=== PATIENT | female | born 1940 | race Caucasian/White ===

== ENCOUNTER 2016-08-29 11:29 | Outpatient (CLI) | payer OTHER ==
--- NOTE | 2016-08-29 12:12 | DIAGNOSTIC IMAGING REPORT ---
PROCEDURE: XR CHEST 2 VIEW INDICATION: ABMORNAL EKG,COUGH,CHEST PX,HYPERTENSION TECHNIQUE: PA and lateral views. COMPARISON: Chest 01/31/06 FINDINGS: Lungs are clear. Heart and mediastinum are normal. Thorax is normal. IMPRESSION: 1. Negative chest. 2. Results were called to Dr. Morales
== END 2016-08-29 23:00 ==
LOC: LAB SRH 11:29
DX: R94.31 Abnormal electrocardiogram [ECG] [EKG] (principal); R05 Cough; R07.9 Chest pain, unspecified; I10 Essential (primary) hypertension
CPT/HCPCS: 90074; 90100; 90616

== ENCOUNTER 2016-11-25 17:27 | Emergency (ER) | payer OTHER ==
--- NOTE | 2016-11-25 19:41 | DIAGNOSTIC IMAGING REPORT ---
PROCEDURE: XR CHEST 1 VIEW INDICATION: CHEST PAIN TECHNIQUE: Portable AP view (1920 hours). COMPARISON: Compared to chest x-ray on 08/29/2016. FINDINGS: Allowing for overlying wires and electrodes, lungs are clear. Heart and mediastinum are normal. Mild levoscoliosis and degenerative changes of the thoracic spine. IMPRESSION: 1. Negative chest.
--- NOTE | 2016-11-25 21:18 | ED NURSING NOTES ---
Clinical Report - Nurses [facility] [address] [place] [address] 11/25/2016 17:28 Patient: NISREEN STEINBERG TRIAGE Triage time 17:29 Nov 25 2016. Chief Complaint: (pt reports back pain x 3 days, ems found pt with HR 80-160's, denies cp). Alert. SEPSIS SCREEN: Sepsis Screen: negative. Negative (no infection suspected/documented). --17:35 Jillian Poon R.N. 17:29 11/25/16. BP: 179/124. HR: 154. RR: 15. O2 saturation: 99%. Temp: 99.4 F. Pain level now 10/10. --17:35 Jillian Poon R.N. Weight: 45.3 kg estimated. Height/Length: 60 inches Estimated. BMI: 19.5. --11:46 Mee Turcios R.N. Medications Unable to Obtain (Patient refused to answer questions in regards to meds. ). --11:47 Mee Turcios R.N. Allergies None. --17:31 Jillian Poon R.N. History Arrived by EMS. Historian: patient. Onset. (3 days ago). ( pt poor hx and agitated and argumentative with care ,). ( pts only c/o is back pain). 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 See EMS report. PAST MEDICAL HX: Immunizations: up-to-date. The patient is post-menopausal. SOCIAL HX: Light tobacco smoker (cigarette)- less than 1/2 a pack per day (pt states "I smoke one cigarette a day when I am stressed"). No alcohol use or drug use. No infectious disease exposure. ABUSE ASSESSMENT: No report of abuse. SELF HARM ASSESSMENT: A self harm assessment was performed. The patient answered "no" to the question "Have you recently felt down, depressed, or hopeless?", "Have you noticed less interest or pleasure in doing things?", "Do you have thoughts of harming or killing yourself?", "Are you here because you tried to hurt yourself?", "Have you ever tried to hurt yourself before today?", "Have you recently had thoughts about harming or killing others?" and "Do you have any dangerous items in your possession?". FALL RISK ASSESSMENT: Fall risk assessment completed. No fall risk identified. NUTRITIONAL RISK ASSESSMENT: The nutritional risk assessment revealed no deficiencies. FUNCTIONAL ASSESSMENT: Functional assessment: no impairments noted. LEARNING NEEDS ASSESSMENT: The learning needs assessment revealed no barriers. SKIN INTEGRITY ASSESSMENT: Skin integrity risk assessment completed. No skin integrity risk identified. --17:35 Jillian Poon R.N. Interventions ID band on patient. To treatment room. Transported via stretcher by EMS. --17:35 Jillian Poon R.N. PHYSICAL ASSESSMENT GENERAL / NEURO / PSYCH: (pt has very aggressive verbal tone with staff,). She appears agitated and is hostile. --17:37 Jillian Poon R.N. NURSING PROGRESS NOTES EKG time: (6838). EKG was performed by a nurse and shown to the ED physician. --17:43 Stephon Mares R.N. 17:44 11/25/2016 Site #1 started via IV in the left forearm with an 20g angiocath, with aseptic technique and good blood return; one attempt. Blood drawn: rainbow set. Labeled in the presence of the patient and sent to the lab. Saline lock flushed with 10 mL saline. --17:54 Mee Turcios R.N. Oxygen administered. monitoring engineer, pulse oximeter and NIBP monitor placed on patient; hospital monitor- Lead II; monitor alarms on. Patient gowned. Head of bed elevated. Two patient identifiers checked. Call light placed in reach. Side rails up x 2. Bed placed in lowest position. Brakes of bed on. Patient ready for evaluation. --18:10 Mee Turcios R.N. 18:10 11/25/16. BP: 167/85. HR: 140. RR: 20. O2 saturation: 94% on room air. Pain level now: 05/29. --18:13 Mee Turcios R.N. 18:11/25/2016 Dilaudid (HYDROmorphone HCl PF) IVP 0.5 mg given over 1 minute(s) via site #1. Allergies verified, confirmed 5 rights and sedative warning given to the patient. IV patency established. IV site checked: no pain, redness, or swelling. IV flushed thoroughly pre- and post-medication administration. IVP given by RN. --18:13 Mee Turcios R.N. 18:09 11/25/2016 Ativan (LORazepam) IVP 1 mg given over 1 minute(s) via site #1. Allergies verified, confirmed 5 rights and sedative warning given to the patient. IV patency established. IV site checked: no pain, redness, or swelling. IV flushed thoroughly pre- and post-medication administration. IVP given by RN. --18:14 Mee Turcios R.N. 18:14 11/25/2016 Toradol IVP 30 mg given over 1 minute(s) via site #1. Allergies verified and confirmed 5 rights. IV patency established. IV site checked: no pain, redness, or swelling. IV flushed thoroughly pre- and post-medication administration. IVP given by RN. --18:14 Mee Turcios R.N. 18:24 11/25/2016 Cardizem IVP 15 mg given over 5 minute(s) via site #1. Allergies verified and confirmed 5 rights. IV patency established. IV site checked: no pain, redness, or swelling. IV flushed thoroughly pre- and post-medication administration. IVP given by RN. --18:29 Mee Turcios R.N. 18:29 11/25/16. BP: 148/73. HR: 114. RR: 22. O2 saturation: 96% on nasal cannula at 2 liters/minute. Pain level now: 03/29. 18:10 11/25/16. BP: 167/85. HR: 140. RR: 20. O2 saturation: 94% on room air. Pain level now: 05/29. --18:30 Mee Turcios R.N. 19:06 11/25/2016 Started 10 mg of Cardizem Drip IV in bag #1 100 mL; at 10 mg/hr over 5 hour(s) via site #1 via IV pump. Allergies verified and confirmed 5 rights. IV patency established. IV site checked: no pain, redness, or swelling. IV flushed thoroughly pre- and post-medication administration. --19:16 Mee Turcios R.N. 19:24 11/25/16. BP: 132/74. HR: 117. RR: 20. O2 saturation: 99% on nasal cannula at 2 liters/minute. Pain level now: 09/29. --19:25 Mee Turcios R.N. 20:24 11/25/2016 Dilaudid (HYDROmorphone HCl PF) IVP 0.5 mg given over 1 minute(s) via site #1. Allergies verified, confirmed 5 rights and sedative warning given to the patient. IV patency established. IV site checked: no pain, redness, or swelling. IV flushed thoroughly pre- and post-medication administration. IVP given by RN. --20:29 Mee Turcios R.N. 20:26 11/25/2016 Ativan (LORazepam) IVP 1 mg given over 1 minute(s) via site #1. Allergies verified, confirmed 5 rights and sedative warning given to the patient. IV patency established. IV site checked: no pain, redness, or swelling. IV flushed thoroughly pre- and post-medication administration. IVP given by RN. --20:30 Mee Turcios R.N. 21:42 11/25/16. BP: 145/83. HR: 114. RR: 20. O2 saturation: 96% on nasal cannula at 2 liters/minute. --21:44 Joellen Sorto ( Patient assisted up to bedside commode). --21:44 Joellen Sorto 22:39 11/25/2016 Site #[address] upon transfer; patent, no pain and no signs of infection or infiltration. Good blood return present (Diltiazem 125mg/125ml bag . Normal saline 250ml bag 240ml remaining to infused.). --11:53 Mee Turcios R.N. 22:40 11/25/2016 IV Saline Lock Drip IV Continued: upon transfer at the rate of 15 mcg/hr. 95 mL remaining bag #1. IV patency established. IV site checked: no pain, redness, or swelling. IV flushed thoroughly. (Diltiazem). --11:51 Mee Turcios R.N. DISPOSITION / DISCHARGE Patient's personal items include, Robe and gown; items were transported with the patient. Collection of belongings was witnessed by 1 nurse. --21:45 Mee Turcios R.N. 22:18 11/25/16. BP: 155/92. HR: 115. RR: 18. O2 saturation: 96% on nasal cannula at 2 liters/minute. Temp: deferred. 21:42 11/25/16. BP: 145/83. HR: 114. RR: 20. O2 saturation: 96% on nasal cannula at 2 liters/minute. 20:30 11/25/16. BP: 150/78. HR: 110. RR: 18. O2 saturation: 98% on room air. Pain level now: 01/27. 19:24 11/25/16. BP: 132/74. HR: 117. RR: 20. O2 saturation: 99% on nasal cannula at 2 liters/minute. Pain level now: 09/29. 18:29 11/25/16. BP: 148/73. HR: 114. RR: 22. O2 saturation: 96% on nasal cannula at 2 liters/minute. Pain level now: 03/29. 18:11/25/16. BP: 167/85. HR: 140. RR: 20. O2 saturation: 94% on room air. Pain level now: 05/29. 17:11/25/16. BP: 179/124. HR: 154. RR: 15. O2 saturation: 99%. Temp: 99.4 F. Pain level now 05/29. --22:23 Mee Turcios R.N. Transported via stretcher by EMS with IV. Report was given to a nurse and an EMT/P in person. Report included patient's care, treatment, medications, reviewed medication reconcilliation, and condition (including any recent changes or anticipated changes). Report was acknowledged and care was transferred. --22:24 Mee Turcios R.N. Report was given to a nurse via a phone call. Report included patient's care, treatment, medications, reviewed medication reconcilliation, and condition (including any recent changes or anticipated changes). Report was acknowledged and care was transferred. (MARSHAL Loya). --22:31 Mee Turcios R.N. Departure time: 22:45 Nov 25 2016. --23:21 Joellen Sorto Departure time: 2244. --11:56 Mee Turcios R.N. Locked/Released at 11/26/2016 11:59 by Mee Turcios R.N.
--- NOTE | 2016-11-25 21:18 | ED CLINICAL REPORT ---
Clinical Report - Physicians/Mid Levels [facility] [address] [place] [address] 11/25/2016 17:28 Patient: NISREEN STEINBERG Time Seen: 17:40 Nov 25 2016. Arrived- By ambulance. Historian- patient and EMS personnel. CPT: ER phys charges level 5 plus (#[id number]). EKG interpretation (#[id number]). HISTORY OF PRESENT ILLNESS Chief Complaint: Main complaint is of back pain but medics found a HR of 160. This started about 3 days of back pain; Tried a soma as it usually works but has not gotten relief yet. and is still present. At its maximum, severity described as moderate. When seen in the E.D., severity described as moderate. Modifying factors- worsened by movement and walking. (Pt does not like Doctors so did not follow up with cardiology after Dr Morales diagnosed an ND in the office this past August. 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 Pt does not know of any history of a-fib. She has had an irregular heartbeat on and off for the past 6 months but did not report it.). Similar symptoms previously: Chronically, milder (6 times). Diagnosis: unknown. ( Pt experienced fluttering in the chest but did not have it checked out.). Recent medical care: Not recently seen/assessed. REVIEW OF SYSTEMS No fever, sore throat or throat, sinus drainage or nasal congestion. No cough, difficulty breathing, chest pain, abdominal pain or nausea. No vomiting, diarrhea, black stools, bloody stools or difficulty with urination. No headache, blackouts, skin rash, weakness or diabetic symptoms. No easy bruising. The patient has had moderate lower back pain (10/10). No difficulty with ambulation. All systems otherwise negative, except as recorded above. PAST HISTORY ND August 2016. Cardiac cath 2011 Dr Huerta Hypertension. Diabetes Mellitus.. Additional Surgeries: Back Surgery. Cholecystectomy.. SOCIAL HISTORY Light tobacco smoker (cigarette)- less than 1/2 a pack per day. No alcohol use or drug use. ADDITIONAL NOTES The nursing notes have been reviewed. PHYSICAL EXAM Vital Signs: 11/25/2016 17:29 BP: 179/124. HR: 154. RR: 15. O2 saturation: 99%. Temp: 99.4 F. Appearance: Alert. Anxious. Appears to be in pain. Patient in moderate distress. Eyes: Eyes normal inspection. ENT: Pharynx normal. Neck: Normal inspection. Neck supple. CVS: Tachycardia. Heart sounds normal. Pulses normal. Respiratory: No respiratory distress. Breath sounds normal. Chest nontender. Abdomen: No visible injury. Soft and nontender. Bowel sounds normal. Back: (Tender to palpation over the paralumbar soft tissue.). Skin: Skin warm. Normal skin color. No rash. Extremities: Extremities exhibit normal ROM. No lower extremity edema. Neuro: Oriented X 3. No motor deficit. No sensory deficit. Reflexes normal. LABS, X-RAYS, AND EKG EKG: Rate: 158. Atrial fibrillation. Non-specific ST segment / T wave abnormalities. ST depression. Prior EKG unavailable. The study has been interpreted contemporaneously. The study has been independently viewed by me. The EKG appears to be a good tracing. Chest X-ray: Normal Chest X-Ray. Laboratory Tests: CBC w Diff: (TEETEE: 11/25/2016 17:45) ( MsgRcvd 11/25/2016 18:03) Final results Test Result Flag Units (Reference) WHITE BLOOD COUNT 16.0 H K/uL (4.5-11.5) RED BLOOD COUNT 5.27 H M/uL (4.00-5.20) HEMOGLOBIN 15.4 gm/dL (12.0-16.0) HEMATOCRIT 45.5 % (36.0-46.0) MEAN CELL VOLUME 86 fL (80-100) MEAN CORPUSCULAR HGB 29 pg (26-34) MEAN CORPUSCULAR HGB CONC 34 g/dL (31-37) RED CELL DISTRIBUTION WIDTH 13.6 % (11.6-14.8) PLATELET COUNT 256 K/uL (150-400) NEUTROPHIL % 71.5 % (50-75) LYMPH % 19.3 L % (25-40) MONO % 8.5 % (3-14) EOSINOPHIL % 0.1 % (0-4) BASOPHIL % 0.6 % (0-2) BNP: (TEETEE: 11/25/2016 17:45) ( PrgRcvd 11/25/2016 18:33) Final results Test Result Flag Units (Reference) B-TYPE NATRIURETIC PEPTIDE 321 H pg/ml (5-100) TSH: (TEETEE: 11/25/2016 17:45) ( MsgRcvd 11/25/2016 18:29) Final results Test Result Flag Units (Reference) THYROID STIMULATING HORMONE 1.272 uIU/mL (0.30-3.74) CHEM 13 PANEL: (TEETEE: 11/25/2016 17:45) ( [facility] Final results Test Result Flag Units (Reference) GLUCOSE 131 H mg/dL (70-110) BUN 15 mg/dL (7-18) CREATININE 1.0 mg/dL (0.6-1.3) Estimated GFR 57.76 mL/min Estimated GFR- >60 mL/min Note: Persistent reduction over 3 months in eGFR<60 mL/min/1.73 m2 defines CKD. Patients with eGFR values>=60 mL/min/1.73 m2 may also have CKD if evidence ofpersistent proteinuria. Additional information may be foundat www.kidney.org. SODIUM 137 mmol/L (136-145) POTASSIUM 3.5 mmol/L (3.5-5.1) CHLORIDE 103 mmol/L (98-107) CARBON DIOXIDE 21 mmol/L (21-32) CALCIUM 9.9 mg/dL (8.5-10.1) TOTAL PROTEIN 7.8 g/dL (6.4-8.2) ALBUMIN 3.4 g/dL (3.3-5.0) BILIRUBIN, TOTAL 1.2 H mg/dL (0.0-1.0) ALKALINE PHOSPHATASE 119 H U/L (46-116) AST (SGOT) 21 U/L (15-37) ALT (SGPT) 17 U/L (12-78) MAGNESIUM 1.7 L mg/dL (1.8-2.4) CPK 34 U/L (24-260) TROPONIN I 0.17 ng/mL (0.00-1.5) TROPONIN REFERENCE RANGE:<0.1 NEGATIVE0.1-1.5 INDETERMINANT>1.5 POSITIVE . PROGRESS AND PROCEDURES Course of Care: Dilaudid 0.5 mg IV Toradol 30 mg Iv Ativan 1mg IV Cardiazem 15 mg Iv with response to 120-130. Cardiazem 10 mg IV with 10mg/hr drip started. Patient is stable. Symptoms better. Discussed case with on-call health care provider, (Cali). Reviewed test results. Agreed upon treatment plan and decision to admit. Health care provider will see patient in hospital. Patient/family counseled. Old medical records ordered. Disposition: Transferred to [facility]. CLINICAL IMPRESSION New onset atrial fibrillation. The patient does not have one or more high risk factors and/or two or more moderate risk factors for thromboembolism. Acute exacerbation of chronic low back pain. poor compliance EKG changes consistent with ischemia with rapid heart rate. (Electronically signed by Yonathan Stephens MD 11/26/2016 11:52)
--- NOTE | 2016-11-25 21:18 | ED CLINICAL REPORT ---
Clinical Report - Physicians/Mid Levels [facility] [address] [place] [address] 11/25/2016 17:28 Patient: NISREEN STEINBERG Time Seen: 17:40 Nov 25 2016. Arrived- By ambulance. Historian- patient and EMS personnel. CPT: ER phys charges level 5 plus (#[id number]). EKG interpretation (#[id number]). HISTORY OF PRESENT ILLNESS Chief Complaint: Main complaint is of back pain but medics found a HR of 160. This started about 3 days of back pain; Tried a soma as it usually works but has not gotten relief yet. and is still present. At its maximum, severity described as moderate. When seen in the E.D., severity described as moderate. Modifying factors- worsened by movement and walking. (Pt does not like Doctors so did not follow up with cardiology after Dr Morales diagnosed an DE in the office this past August. States that she had a complete heart w/u in [place], 3 years ago and that her vessels were clear. Pt does not know of any history of a-fib. She has had an irregular heartbeat on and off for the past 6 months but did not report it.). Similar symptoms previously: Chronically, milder (6 times). Diagnosis: unknown. ( Pt experienced fluttering in the chest but did not have it checked out.). Recent medical care: Not recently seen/assessed. REVIEW OF SYSTEMS No fever, sore throat or throat, sinus drainage or nasal congestion. No cough, difficulty breathing, chest pain, abdominal pain or nausea. No vomiting, diarrhea, black stools, bloody stools or difficulty with urination. No headache, blackouts, skin rash, weakness or diabetic symptoms. No easy bruising. The patient has had moderate lower back pain (10/10). No difficulty with ambulation. All systems otherwise negative, except as recorded above. PAST HISTORY DE August 2016. Cardiac cath [address] Huerta Hypertension. Diabetes Mellitus.. Additional Surgeries: Back Surgery. Cholecystectomy.. SOCIAL HISTORY Light tobacco smoker (cigarette)- less than 1/2 a pack per day. No alcohol use or drug use. ADDITIONAL NOTES The nursing notes have been reviewed. PHYSICAL EXAM Vital Signs: 11/25/2016 17:29 BP: 179/124. HR: 154. RR: 15. O2 saturation: 99%. Temp: 99.4 F. Appearance: Alert. Anxious. Appears to be in pain. Patient in moderate distress. Eyes: Eyes normal inspection. ENT: Pharynx normal. Neck: Normal inspection. Neck supple. CVS: Tachycardia. Heart sounds normal. Pulses normal. Respiratory: No respiratory distress. Breath sounds normal. Chest nontender. Abdomen: No visible injury. Soft and nontender. Bowel sounds normal. Back: (Tender to palpation over the paralumbar soft tissue.). Skin: Skin warm. Normal skin color. No rash. Extremities: Extremities exhibit normal ROM. No lower extremity edema. Neuro: Oriented X 3. No motor deficit. No sensory deficit. Reflexes normal. LABS, X-RAYS, AND EKG EKG: Rate: 158. Atrial fibrillation. Non-specific ST segment / T wave abnormalities. ST depression. Prior EKG unavailable. The study has been interpreted contemporaneously. The study has been independently viewed by me. The EKG appears to be a good tracing. Chest X-ray: Normal Chest X-Ray. Laboratory Tests: CBC w Diff: (TEETEE: 11/25/2016 17:45) ( MsgRcvd 11/25/2016 18:03) Final results Test Result Flag Units (Reference) WHITE BLOOD COUNT 16.0 H K/uL (4.5-11.5) RED BLOOD COUNT 5.27 H M/uL (4.00-5.20) HEMOGLOBIN 15.4 gm/dL (12.0-16.0) HEMATOCRIT 45.5 % (36.0-46.0) MEAN CELL VOLUME 86 fL (80-100) MEAN CORPUSCULAR HGB 29 pg (26-34) MEAN CORPUSCULAR HGB CONC 34 g/dL (31-37) RED CELL DISTRIBUTION WIDTH 13.6 % (11.6-14.8) PLATELET COUNT 256 K/uL (150-400) NEUTROPHIL % 71.5 % (50-75) LYMPH % 19.3 L % (25-40) MONO % 8.5 % (3-14) EOSINOPHIL % 0.1 % (0-4) BASOPHIL % 0.6 % (0-2) BNP: (TEETEE: 11/25/2016 17:45) ( MtgRcvd 11/25/2016 18:33) Final results Test Result Flag Units (Reference) B-TYPE NATRIURETIC PEPTIDE 321 H pg/ml (5-100) TSH: (TEETEE: 11/25/2016 17:45) ( MsgRcvd 11/25/2016 18:29) Final results Test Result Flag Units (Reference) THYROID STIMULATING HORMONE 1.272 uIU/mL (0.30-3.74) CHEM 13 PANEL: (TEETEE: 11/25/2016 17:45) ( [facility]) Final results Test Result Flag Units (Reference) GLUCOSE 131 H mg/dL (70-110) BUN 15 mg/dL (7-18) CREATININE 1.0 mg/dL (0.6-1.3) Estimated GFR 57.76 mL/min Estimated GFR- >60 mL/min Note: Persistent reduction over 3 months in eGFR<60 mL/min/1.73 m2 defines CKD. Patients with eGFR values>=60 mL/min/1.73 m2 may also have CKD if evidence ofpersistent proteinuria. Additional information may be foundat www.kidney.org. SODIUM 137 mmol/L (136-145) POTASSIUM 3.5 mmol/L (3.5-5.1) CHLORIDE 103 mmol/L (98-107) CARBON DIOXIDE 21 mmol/L (21-32) CALCIUM 9.9 mg/dL (8.5-10.1) TOTAL PROTEIN 7.8 g/dL (6.4-8.2) ALBUMIN 3.4 g/dL (3.3-5.0) BILIRUBIN, TOTAL 1.2 H mg/dL (0.0-1.0) ALKALINE PHOSPHATASE 119 H U/L (46-116) AST (SGOT) 21 U/L (15-37) ALT (SGPT) 17 U/L (12-78) MAGNESIUM 1.7 L mg/dL (1.8-2.4) CPK 34 U/L (24-260) TROPONIN I 0.17 ng/mL (0.00-1.5) TROPONIN REFERENCE RANGE:<0.1 NEGATIVE0.1-1.5 INDETERMINANT>1.5 POSITIVE . PROGRESS AND PROCEDURES Course of Care: Dilaudid 0.5 mg IV Toradol 30 mg Iv Ativan 1mg IV Cardiazem 15 mg Iv with response to 120-130. Cardiazem 10 mg IV with 10mg/hr drip started. Patient is stable. Symptoms better. Discussed case with on-call health care provider, (Cali). Reviewed test results. Agreed upon treatment plan and decision to admit. Health care provider will see patient in hospital. Patient/family counseled. Old medical records ordered. Disposition: Transferred to [facility]. CLINICAL IMPRESSION New onset atrial fibrillation. The patient does not have one or more high risk factors and/or two or more moderate risk factors for thromboembolism. Acute exacerbation of chronic low back pain. poor compliance EKG changes consistent with ischemia with rapid heart rate. (Electronically signed by Yonathan Stephens MD 11/26/2016 11:52)
--- NOTE | 2016-11-25 21:18 | ED ORDER SUMMARY ---
..... 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) (17:54 11/25/2016 Lianne SYLVESTER) (17:56 SRoberts R.N.) Cardiac Panel Stat (17:54 11/25/2016 Lianne SYLVESTER) (Ack 18:15 Marivel) (18:29 SRoberts R.N.) BNP Urgent (17:54 11/25/2016 Lianne SYLVESTER) (Ack 18:15 Marivel) (18:29 SRoberts R.N.) TSH Urgent (17:54 11/25/2016 Lianne SYLVESTER) (Ack 18:15 Marivel) (18:29 SRoberts R.N.) Oxygen (2 L/min) (NC) (17:54 11/25/2016 Lianne SYLVESTER) (18:29 oberts R.N.) Pulse oximeter (17:54 11/25/2016 Lianne SYLVESTER) (17:56 SRoberts R.N.) EKG - ER Stat (17:54 11/25/2016 Lianne SYLVESTER) (18:10 Marivel) Chest 1V Urgent (19:13 11/25/2016 Lianne SYLVESTER) (Ack 19:15 Summer) (19:16 SRoberts R.N.) Troponin-I Urgent (19:33 11/25/2016 Lianne SYLVESTER) (Ack 19:34 Summer) (20:27 SRoberts R.N.) MEDICATION ORDERS: Cardizem Drip IV : initial bolus 10 mg, then 10 mg/hr (NOW); Routine (18:59 11/25/2016 Lianne SYLVESTER) (19:16 SRoberts R.N.) IV FLUIDS: Dilaudid IV 0.5 mg (NOW) (17:53 11/25/2016 Lianne SYLVESTER) (Ack 17:55 SRoberts R.N.) (18:13 SRoberts R.N.) Ativan IV 1 mg (NOW) (17:53 11/25/2016 Lianne SYLVESTER) (Ack 17:55 SRoberts R.N.) (18:14 SRoberts R.N.) Toradol IV 30 mg (NOW) (17:53 11/25/2016 Lianne SYLVESTER) (Ack 17:55 SRoberts R.N.) (18:14 SRoberts R.N.) IV Saline Lock (17:54 11/25/2016 Lianne SYLVESTER) (Ack 17:55 SRoberts R.N.) (17:56 SRoberts R.N.) Cardizem IV 15 mg (NOW) (17:56 11/25/2016 Lianne SYLVESTER) (18:29 SRoberts R.N.) Dilaudid IV 0.5 mg (NOW) (20:02 11/25/2016 Lianne SYLVESTER) (Ack 20:11 SRoberts R.N.) (20:29 SRoberts R.N.) Ativan IV 1 mg (NOW) (20:02 11/25/2016 Lianne SYLVESTER) (Ack 20:11 SRoberts R.N.) (20:30 SRoberts R.N.) ORDER SHEET NOTES: [Electronically signed by Yonathan Stephens MD (11:52 11/26/2016)] [Electronically signed by Mee Turcios R.N. (11:59 11/26/2016)] [Electronically locked/signed by Mee Turcios R.N. (11:59 11/26/2016)]
--- NOTE | 2016-11-25 21:18 | ED NURSING NOTES ---
Clinical Report - Nurses [facility] [address] [place] [address] 11/25/2016 17:28 Patient: NISREEN STEINBERG TRIAGE Triage time 17:29 Nov 25 2016. Chief Complaint: (pt reports back pain x 3 days, ems found pt with HR 80-160's, denies cp). Alert. SEPSIS SCREEN: Sepsis Screen: negative. Negative (no infection suspected/documented). --17:35 Jillian Poon R.N. 17:29 11/25/16. BP: 179/124. HR: 154. RR: 15. O2 saturation: 99%. Temp: 99.4 F. Pain level now 10/10. --17:35 Jillian Poon R.N. Weight: 45.3 kg estimated. Height/Length: 60 inches Estimated. BMI: 19.5. --11:46 Mee Turcios R.N. Medications Unable to Obtain (Patient refused to answer questions in regards to meds. ). --11:47 Mee Turcios R.N. Allergies None. --17:31 Jillian Poon R.N. History Arrived by EMS. Historian: patient. Onset. (3 days ago). ( pt poor hx and agitated and argumentative with care ,). ( pts only c/o is back pain). Treatment COOKING CHEF: None. See EMS report. PAST MEDICAL HX: Immunizations: up-to-date. The patient is post-menopausal. SOCIAL HX: Light tobacco smoker (cigarette)- less than 1/2 a pack per day (pt states "I smoke one cigarette a day when I am stressed"). No alcohol use or drug use. No infectious disease exposure. ABUSE ASSESSMENT: No report of abuse. SELF HARM ASSESSMENT: A self harm assessment was performed. The patient answered "no" to the question "Have you recently felt down, depressed, or hopeless?", "Have you noticed less interest or pleasure in doing things?", "Do you have thoughts of harming or killing yourself?", "Are you here because you tried to hurt yourself?", "Have you ever tried to hurt yourself before today?", "Have you recently had thoughts about harming or killing others?" and "Do you have any dangerous items in your possession?". FALL RISK ASSESSMENT: Fall risk assessment completed. No fall risk identified. NUTRITIONAL RISK ASSESSMENT: The nutritional risk assessment revealed no deficiencies. FUNCTIONAL ASSESSMENT: Functional assessment: no impairments noted. LEARNING NEEDS ASSESSMENT: The learning needs assessment revealed no barriers. SKIN INTEGRITY ASSESSMENT: Skin integrity risk assessment completed. No skin integrity risk identified. --17:35 Jillian Poon R.N. Interventions ID band on patient. To treatment room. Transported via stretcher by EMS. --17:35 Jillian Poon R.N. PHYSICAL ASSESSMENT GENERAL / NEURO / PSYCH: (pt has very aggressive verbal tone with staff,). She appears agitated and is hostile. --17:37 Jillian Poon R.N. NURSING PROGRESS NOTES EKG time: (7878). EKG was performed by a nurse and shown to the ED physician. --17:43 Stephon Mares R.N. 17:44 11/25/2016 Site #1 started via IV in the left forearm with an 20g angiocath, with aseptic technique and good blood return; one attempt. Blood drawn: rainbow set. Labeled in the presence of the patient and sent to the lab. Saline lock flushed with 10 mL saline. --17:54 Mee Turcios R.N. Oxygen administered. color television console monitor, pulse oximeter and NIBP monitor placed on patient; school lunch monitor- Lead II; monitor alarms on. Patient gowned. Head of bed elevated. Two patient identifiers checked. Call light placed in reach. Side rails up x 2. Bed placed in lowest position. Brakes of bed on. Patient ready for evaluation. --18:10 Mee Turcios R.N. 18:10 11/25/16. BP: 167/85. HR: 140. RR: 20. O2 saturation: 94% on room air. Pain level now: 05/29. --18:13 Mee Turcios R.N. 18:11/25/2016 Dilaudid (HYDROmorphone HCl PF) IVP 0.5 mg given over 1 minute(s) via site #1. Allergies verified, confirmed 5 rights and sedative warning given to the patient. IV patency established. IV site checked: no pain, redness, or swelling. IV flushed thoroughly pre- and post-medication administration. IVP given by RN. --18:13 Mee Turcios R.N. 18:09 11/25/2016 Ativan (LORazepam) IVP 1 mg given over 1 minute(s) via site #1. Allergies verified, confirmed 5 rights and sedative warning given to the patient. IV patency established. IV site checked: no pain, redness, or swelling. IV flushed thoroughly pre- and post-medication administration. IVP given by RN. --18:14 Mee Turcios R.N. 18:14 11/25/2016 Toradol IVP 30 mg given over 1 minute(s) via site #1. Allergies verified and confirmed 5 rights. IV patency established. IV site checked: no pain, redness, or swelling. IV flushed thoroughly pre- and post-medication administration. IVP given by RN. --18:14 Mee Turcios R.N. 18:24 11/25/2016 Cardizem IVP 15 mg given over 5 minute(s) via site #1. Allergies verified and confirmed 5 rights. IV patency established. IV site checked: no pain, redness, or swelling. IV flushed thoroughly pre- and post-medication administration. IVP given by RN. --18:29 Mee Turcios R.N. 18:29 11/25/16. BP: 148/73. HR: 114. RR: 22. O2 saturation: 96% on nasal cannula at 2 liters/minute. Pain level now: 03/29. 18:10 11/25/16. BP: 167/85. HR: 140. RR: 20. O2 saturation: 94% on room air. Pain level now: 05/29. --18:30 Mee Turcios R.N. 19:06 11/25/2016 Started 10 mg of Cardizem Drip IV in bag #1 100 mL; at 10 mg/hr over 5 hour(s) via site #1 via IV pump. Allergies verified and confirmed 5 rights. IV patency established. IV site checked: no pain, redness, or swelling. IV flushed thoroughly pre- and post-medication administration. --19:16 Mee Turcios R.N. 19:24 11/25/16. BP: 132/74. HR: 117. RR: 20. O2 saturation: 99% on nasal cannula at 2 liters/minute. Pain level now: 09/29. --19:25 Mee Turcios R.N. 20:24 11/25/2016 Dilaudid (HYDROmorphone HCl PF) IVP 0.5 mg given over 1 minute(s) via site #1. Allergies verified, confirmed 5 rights and sedative warning given to the patient. IV patency established. IV site checked: no pain, redness, or swelling. IV flushed thoroughly pre- and post-medication administration. IVP given by RN. --20:29 Mee Turcios R.N. 20:26 11/25/2016 Ativan (LORazepam) IVP 1 mg given over 1 minute(s) via site #1. Allergies verified, confirmed 5 rights and sedative warning given to the patient. IV patency established. IV site checked: no pain, redness, or swelling. IV flushed thoroughly pre- and post-medication administration. IVP given by RN. --20:30 Mee Turcios R.N. 21:42 11/25/16. BP: 145/83. HR: 114. RR: 20. O2 saturation: 96% on nasal cannula at 2 liters/minute. --21:44 Joellen Sorto ( Patient assisted up to bedside commode). --21:44 Joellen Sorto 22:39 11/25/2016 Site #[address] upon transfer; patent, no pain and no signs of infection or infiltration. Good blood return present (Diltiazem 125mg/125ml bag . Normal saline 250ml bag 240ml remaining to infused.). --11:53 Mee Turcios R.N. 22:40 11/25/2016 IV Saline Lock Drip IV Continued: upon transfer at the rate of 15 mcg/hr. 95 mL remaining bag #1. IV patency established. IV site checked: no pain, redness, or swelling. IV flushed thoroughly. (Diltiazem). --11:51 Mee Turcios R.N. DISPOSITION / DISCHARGE Patient's personal items include, Robe and gown; items were transported with the patient. Collection of belongings was witnessed by 1 nurse. --21:45 Mee Turcios R.N. 22:18 11/25/16. BP: 155/92. HR: 115. RR: 18. O2 saturation: 96% on nasal cannula at 2 liters/minute. Temp: deferred. 21:42 11/25/16. BP: 145/83. HR: 114. RR: 20. O2 saturation: 96% on nasal cannula at 2 liters/minute. 20:30 11/25/16. BP: 150/78. HR: 110. RR: 18. O2 saturation: 98% on room air. Pain level now: 01/27. 19:24 11/25/16. BP: 132/74. HR: 117. RR: 20. O2 saturation: 99% on nasal cannula at 2 liters/minute. Pain level now: 09/29. 18:29 11/25/16. BP: 148/73. HR: 114. RR: 22. O2 saturation: 96% on nasal cannula at 2 liters/minute. Pain level now: 03/29. 18:11/25/16. BP: 167/85. HR: 140. RR: 20. O2 saturation: 94% on room air. Pain level now: 05/29. 17:11/25/16. BP: 179/124. HR: 154. RR: 15. O2 saturation: 99%. Temp: 99.4 F. Pain level now 05/29. --22:23 Mee Turcios R.N. Transported via stretcher by EMS with IV. Report was given to a nurse and an EMT/P in person. Report included patient's care, treatment, medications, reviewed medication reconcilliation, and condition (including any recent changes or anticipated changes). Report was acknowledged and care was transferred. --22:24 Mee Turcios R.N. Report was given to a nurse via a phone call. Report included patient's care, treatment, medications, reviewed medication reconcilliation, and condition (including any recent changes or anticipated changes). Report was acknowledged and care was transferred. (MARSHAL Loya). --22:31 Mee Turcios R.N. Departure time: 22:45 Nov 25 2016. --23:21 Joellen Sorto Departure time: 2244. --11:56 Mee Turcios R.N. Locked/Released at 11/26/2016 11:59 by Mee Turcios R.N.
--- NOTE | 2016-11-25 21:18 | ED ORDER SUMMARY ---
..... Patient: NISREEN STEINBERG [facility] VisitID: [id number] [place] [address] 75y, F Registration Date/Time: 11/25/2016 ORDER SHEET Weight: 45.3 kg (estimated) Allergies: None GENERAL ORDERS: Auto Design Checker (Continuous) (17:54 11/25/2016 Lianne SYLVESTER) (17:56 SRoberts R.N.) Cardiac Panel Stat (17:54 11/25/2016 Lianne SYLVESTER) (Ack 18:15 Marivel) (18:29 SRoberts R.N.) BNP Urgent (17:54 11/25/2016 Lianne SYLVESTER) (Ack 18:15 Marivel) (18:29 SRoberts R.N.) TSH Urgent (17:54 11/25/2016 Lianne SYLVESTER) (Ack 18:15 Marivel) (18:29 SRoberts R.N.) Oxygen (2 L/min) (NC) (17:54 11/25/2016 Lianne SYLVESTER) (18:29 oberts R.N.) Pulse oximeter (17:54 11/25/2016 Lianne SYLVESTER) (17:56 SRoberts R.N.) EKG - ER Stat (17:54 11/25/2016 Lianne SYLVESTER) (18:10 Marivel) Chest 1V Urgent (19:13 11/25/2016 Lianne SYLVESTER) (Ack 19:15 Summer) (19:16 SRoberts R.N.) Troponin-I Urgent (19:33 11/25/2016 Lianne SYLVESTER) (Ack 19:34 Summer) (20:27 SRoberts R.N.) MEDICATION ORDERS: Cardizem Drip IV : initial bolus 10 mg, then 10 mg/hr (NOW); Routine (18:59 11/25/2016 Lianne SYLVESTER) (19:16 SRoberts R.N.) IV FLUIDS: Dilaudid IV 0.5 mg (NOW) (17:53 11/25/2016 Lianne SYLVESTER) (Ack 17:55 SRoberts R.N.) (18:13 SRoberts R.N.) Ativan IV 1 mg (NOW) (17:53 11/25/2016 Lianne SYLVESTER) (Ack 17:55 SRoberts R.N.) (18:14 SRoberts R.N.) Toradol IV 30 mg (NOW) (17:53 11/25/2016 Lianne SYLVESTER) (Ack 17:55 SRoberts R.N.) (18:14 SRoberts R.N.) IV Saline Lock (17:54 11/25/2016 Lianne SYLVESTER) (Ack 17:55 SRoberts R.N.) (17:56 SRoberts R.N.) Cardizem IV 15 mg (NOW) (17:56 11/25/2016 Lianne SYLVESTER) (18:29 SRoberts R.N.) Dilaudid IV 0.5 mg (NOW) (20:02 11/25/2016 Lianne SYLVESTER) (Ack 20:11 SRoberts R.N.) (20:29 SRoberts R.N.) Ativan IV 1 mg (NOW) (20:02 11/25/2016 Lianne SYLVESTER) (Ack 20:11 SRoberts R.N.) (20:30 SRoberts R.N.) ORDER SHEET NOTES: [Electronically signed by Yonathan Stephens MD (11:52 11/26/2016)] [Electronically signed by Mee Turcios R.N. (11:59 11/26/2016)] [Electronically locked/signed by Mee Turcios R.N. (11:59 11/26/2016)]
--- NOTE | 2016-11-26 12:00 | ED MED RECONCILIATION SUMMARY ---
Patient: NISREEN STEINBERG Medication Reconciliation Report [facility] VisitID: [id number] [address] [place] [address] 75y, F Registration Date/Time: 11/25/2016 Weight: 45.3 kg Height/Length: 60 in. BMI: 19.5 ALLERGIES: None The patient's Home Medications are listed below: Unable to obtain. The source(s) of the original Home Medication information: Not obtained. The following Medications were given to the patient in the Emergency Department: Dilaudid [IVP] IVP 0.5 mg, administered: 11/25/2016 6:08:00 PM Ativan [IVP] IVP 1 mg, administered: 11/25/2016 6:09:00 PM Toradol [IVP] IVP 30 mg, administered: 11/25/2016 6:14:00 PM Cardizem [IVP] IVP 15 mg, administered: 11/25/2016 6:24:00 PM Cardizem [IV Drip] Drip IV bolus 0, then 10 mg 10 mg/hr, administered: 11/25/2016 7:06:00 PM Dilaudid [IVP] IVP 0.5 mg, administered: 11/25/2016 8:24:00 PM Ativan [IVP] IVP 1 mg, administered: 11/25/2016 8:26:00 PM The following Medications were prescribed to the patient: None.
--- NOTE | 2016-11-26 12:00 | ED DISCHARGE INSTRUCTIONS ---
Patient: NISREEN STEINBERG General Instructions [facility] VisitID: [id number] [place] [address] 75y, F Registration Date/Time: 11/25/2016 New onset atrial fibrillation. The patient does not have one or more high risk factors and/or two or more moderate risk factors for thromboembolism. Acute exacerbation of chronic low back pain. poor compliance EKG changes consistent with ischemia with rapid heart rate. ADDITIONAL INFORMATION Arrhythmia Electrical impulses cause the normal heart to beat 60 to 100 times a minute. These impulses come from a natural pacemaker deep inside the heart muscle. Each impulse causes the heart muscle to contract. This causes the blood to flow through the heart and out to the tissues and organs of your body. An arrhythmia is a change from the normal speed or pattern of these electrical impulses. This can cause the heart to beat too fast (tachycardia); or too slow (bradycardia); or in an unsteady pattern (irregular rhythm). Symptoms of arrhythmias Different people experience arrhythmias differently. Sometimes they may not have symptoms, but just notice a change in their pulse. Symptoms can include: Fluttering feeling in the chest Shortness of breath Chest pain or pressure Lightheadedness or dizziness Fainting or nearly fainting Palpitations Tiredness, fatigue, or weakness Causes of arrhythmias Arrhythmias are most often due to heart disease such as: Coronary artery disease (arteriosclerosis) Disease of the heart valves Enlarged heart High blood pressure Heart failure Other causes ofarrhythmia include: Certain medicines (such as asthma inhalers and decongestants) Some herbal supplements Cardiac stimulant drugs (such as cocaine, amphetamine, diet pills, certain decongestant cold medicines, caffeine, and nicotine) Excessive alcohol use Medical conditions such as thyroid disease, anemia, anxiety, and panic disorder Arrythmias can often be prevented. The cause and type of arrhythmia determines the best treatment. Sometimes your doctor may want to monitor your heart rate over a 24-hour period or longer. This can help identify the cause of your arrhythmia and find the best treatment. This can be done with a Holter monitor,a portable EKG recording device attached by wires to your chest. You can carry this with you as you perform your routine activities during the monitoring period. Home care Avoid cardiac stimulants (such as cocaine, amphetamine, diet pills, certain decongestant cold medicines, caffeine, and nicotine). If you smoke, stop smoking. Contact your doctor or a local stop-smoking program for help. Tell your doctor about any prescription, [id number] or herbal medicines you take. These may be affecting your heart rhythm. Follow-up care Follow up with your health care provider or as advised by our staff. If a Holter monitor has been recommended, contact the cardiologistyou have been referred toas soon as you canpick up the device. Other outpatient tests may also be arranged for you at that time. Call 911 This is the fastest and safest way to get to the emergency department. The paramedics can also start treatment on the way to the hospital, if needed. Don'twait until your symptoms are severe to call 911. Other reasons to call 911 besides chest pain include: Chest, shoulder, arm, neck, or back pain Shortness of breath Feeling lightheaded, faint, or dizzy Rapid heart beat Slower than usual heart rate compared to your normal Angina withweakness, dizziness, fainting, heavy sweating, nausea, or vomiting Extreme drowsiness, or confusion Weakness of an arm or leg or one side of the face Difficulty with speech or vision When to seek medical care Remember, things are not always like they are on TV. Sometimes it is not so obvious. You may only feel weak or just "not right." If it is not clear or if you have any doubt, call for advice. Seek help for chest pain, or it feels different from usual, even if your symptoms are mild. Do not drive yourself. Have someone else drive. If no one can drive you, call 911. If your doctor has given you medicines to take when you have symptoms, take them, but do not delay getting help while trying to find them. Do not delay. Fast diagnosis and treatment can prevent or limit the amount of heart damage during a heart attack or stroke. Do not go to your doctor's ofice or a clinic because they will not be able to provide all of the testing or treatment required for this condition. You have been given the following additional information: Arrhythmia, Unspecified (Electronically signed by Yonathan Stephens MD 11/26/2016 11:52)
--- NOTE | 2016-11-26 12:00 | ED MAR SUMMARY ---
..... Medication Administration Record [facility] [address] [place] [address] Patient: NISREEN STEINBERG Visit ID: [id number] 75y, F Weight: 45.3 kg Height/Length: 60 in BMI: 19.5 ALLERGIES: None Given 18:08 11/25/2016 Mee Turcios R.N. Medication Administered: DILAUDID [IVP] (HYDROMORPHONE HCL PF), Dose: 0.5 mg IVP over 1 minute(s), Site: #1 left forearm. Medication Ordered: Dilaudid IV 0.5 mg (NOW). Given 18:09 11/25/2016 Mee Turcios R.N. Medication Administered: ATIVAN [IVP] (LORAZEPAM), Dose: 1 mg IVP over 1 minute(s), Site: #1 left forearm. Medication Ordered: Ativan IV 1 mg (NOW). Given 18:11/25/2016 Mee Turcios R.N. Medication Administered: TORADOL [IVP], Dose: 30 mg IVP over 1 minute(s), Site: #1 left forearm. Medication Ordered: Toradol IV 30 mg (NOW). Given 18:11/25/2016 Mee Turcios R.N. Medication Administered: CARDIZEM [IVP], Dose: 15 mg IVP over 5 minute(s), Site: #1 left forearm. Medication Ordered: Cardizem IV 15 mg (NOW). Start 19:06 11/25/2016 Mee Turcios R.N. Medication Administered: CARDIZEM [IV DRIP], Dose: 10 mg Drip IV over 5 hour(s), Rate: 10 mg/hr, Dispensed: 100 mL bag, Site: #1 left forearm. Medication Ordered: Cardizem Drip IV : initial bolus 10 mg, then 10 mg/hr (NOW); Routine. Given 20:11/25/2016 Mee Turcios R.N. Medication Administered: DILAUDID [IVP] (HYDROMORPHONE HCL PF), Dose: 0.5 mg IVP over 1 minute(s), Site: #1 left forearm. Medication Ordered: Dilaudid IV 0.5 mg (NOW). Given 20:26 11/25/2016 Mee Turcios R.N. Medication Administered: ATIVAN [IVP] (LORAZEPAM), Dose: 1 mg IVP over 1 minute(s), Site: #1 left forearm. Medication Ordered: Ativan IV 1 mg (NOW).
--- NOTE | 2016-11-26 12:00 | ED MAR SUMMARY ---
..... Medication Administration Record [facility] [address] [place] [address] Patient: NISREEN STEINBERG Visit ID: [id number] 75y, F Weight: 45.3 kg Height/Length: 60 in BMI: 19.5 ALLERGIES: None Given 18:08 11/25/2016 Mee Turcios R.N. Medication Administered: DILAUDID [IVP] (HYDROMORPHONE HCL PF), Dose: 0.5 mg IVP over 1 minute(s), Site: #1 left forearm. Medication Ordered: Dilaudid IV 0.5 mg (NOW). Given 18:09 11/25/2016 Mee Turcios R.N. Medication Administered: ATIVAN [IVP] (LORAZEPAM), Dose: 1 mg IVP over 1 minute(s), Site: #1 left forearm. Medication Ordered: Ativan IV 1 mg (NOW). Given 18:11/25/2016 Mee Turcios R.N. Medication Administered: TORADOL [IVP], Dose: 30 mg IVP over 1 minute(s), Site: #1 left forearm. Medication Ordered: Toradol IV 30 mg (NOW). Given 18:11/25/2016 Mee Turcios R.N. Medication Administered: CARDIZEM [IVP], Dose: 15 mg IVP over 5 minute(s), Site: #1 left forearm. Medication Ordered: Cardizem IV 15 mg (NOW). Start 19:06 11/25/2016 Mee Turcios R.N. Medication Administered: CARDIZEM [IV DRIP], Dose: 10 mg Drip IV over 5 hour(s), Rate: 10 mg/hr, Dispensed: 100 mL bag, Site: #1 left forearm. Medication Ordered: Cardizem Drip IV : initial bolus 10 mg, then 10 mg/hr (NOW); Routine. Given 20:11/25/2016 Mee Turcios R.N. Medication Administered: DILAUDID [IVP] (HYDROMORPHONE HCL PF), Dose: 0.5 mg IVP over 1 minute(s), Site: #1 left forearm. Medication Ordered: Dilaudid IV 0.5 mg (NOW). Given 20:26 11/25/2016 Mee Turcios R.N. Medication Administered: ATIVAN [IVP] (LORAZEPAM), Dose: 1 mg IVP over 1 minute(s), Site: #1 left forearm. Medication Ordered: Ativan IV 1 mg (NOW).
--- NOTE | 2016-11-26 12:00 | ED MED RECONCILIATION SUMMARY ---
Patient: NISREEN STEINBERG Medication Reconciliation Report [facility] VisitID: [id number] [address] [place] [address] 75y, F Registration Date/Time: 11/25/2016 Weight: 45.3 kg Height/Length: 60 in. BMI: 19.5 ALLERGIES: None The patient's Home Medications are listed below: Unable to obtain. The source(s) of the original Home Medication information: Not obtained. The following Medications were given to the patient in the Emergency Department: Dilaudid [IVP] IVP 0.5 mg, administered: 11/25/2016 6:08:00 PM Ativan [IVP] IVP 1 mg, administered: 11/25/2016 6:09:00 PM Toradol [IVP] IVP 30 mg, administered: 11/25/2016 6:14:00 PM Cardizem [IVP] IVP 15 mg, administered: 11/25/2016 6:24:00 PM Cardizem [IV Drip] Drip IV bolus 0, then 10 mg 10 mg/hr, administered: 11/25/2016 7:06:00 PM Dilaudid [IVP] IVP 0.5 mg, administered: 11/25/2016 8:24:00 PM Ativan [IVP] IVP 1 mg, administered: 11/25/2016 8:26:00 PM The following Medications were prescribed to the patient: None.
== END 2016-11-25 22:45 | disposition swing bed (61) ==
LOC: ED SRH 17:27 → TRANS SRH 20:01 → ED SRH 22:45
DX: I48.91 Unspecified atrial fibrillation (principal); G89.29 Other chronic pain; M54.5 Low back pain; R94.31 Abnormal electrocardiogram [ECG] [EKG]; I10 Essential (primary) hypertension; I25.2 Old myocardial infarction; E11.9 Type 2 diabetes mellitus without complications; F17.200 Nicotine dependence, unspecified, uncomplicated; Z91.19 Patient's noncompliance with other medical treatment and regimen
CPT/HCPCS: 90100; 90616; 91320; 92610; 92720; 93140; 95059